=== PATIENT | female | born 1995 | race Caucasian/White ===

== ENCOUNTER 2022-03-29 05:41 | Inpatient (IN) | payer BC, SELFPAY ==
[2022-03-29] VITALS (7 sets, daily range): BP systolic 108–156; BP diastolic 33–87; PULSE 74–88; RESP 18; TEMP 36.6–36.7; O2SAT 98–99; BMI 34.7; BMI 34.8
[2022-03-29 05:05] LABS: Fetal Membrane Rupture (Rapid) Positive (Negative)
[2022-03-29 07:15] LABS: Basophils # 0.1 K/mm3 (0-0.2); Basophils % 0.9 % (0.1-2.0); Eosinophils # 0.2 K/mm3 (0.0-0.4); Eosinophils % 1.6 % (0.1-12.0); Hematocrit 35.4 % (37.0-47.0); Hemoglobin 12.3 g/dL (12.2-16.2); Lymphocytes # 4.1 K/mm3 (0.7-4.5); Lymphocytes % 27.9 % (10-50); Mean Corpuscular HGB Conc 34.6 g/dL (31.8-35.4); Mean Corpuscular Volume 86.7 fl (81-99); Mean Platelet Volume 10.8 fl (7.4-10.4); Monocytes # 0.8 K/mm3 (0.1-1.0); Monocytes % 5.5 % (1.7-9.3); Neutrophils # 9.5 K/mm3 (1.8-7.8); Neutrophils % 64.2 % (37.0-80.0); Platelet Count 281 K/mm3 (142-424); Red Blood Count 4.08 M/mm3 (4.20-5.40); Red Cell Distribution Width 14.5 % (11.5-17.5); White Blood Count 14.8 K/mm3 (4.8-10.8)
[2022-03-29 07:21] LABS: Microscopic, Urine URINE MICROSCOPIC (MICROSCOPIC)
[2022-03-29 07:25] LABS: Appearance,Urine CLEAR (Clear); Bilirubin,Urine Negative (Negative); Blood, Urine 1+ (Negative); Color,Urine YELLOW (Yellow); Glucose,Urine (UA) Negative (Negative); Ketones,Urine Negative (Negative); Leukocyte Esterase,Urine Negative (Negative); Nitrate,Urine Negative (Negative); PH,Urine 7.5 (5.0-8.5); Protein,Urine Negative (Negative); Specific Gravity, Urine 1.015 (1.005-1.030); Urobilinogen,Urine 0.2 EU/dl (0.2)
[2022-03-29 07:31] LABS: Coronavirus 19, PCR Not Detected (NotDetected); Influenza A, PCR Not Detected (NotDetected); Influenza B, PCR Not Detected (NotDetected)
[2022-03-29 07:37] LABS: Bacteria,Urine Trace /lpf; RBC,Urine Occasional #/hpf (0-3); Squamous Epithelial Cell,Urine Occasional #/hpf (0-5); WBC,Urine Occasional #/hpf (0-3)
[2022-03-29 07:40] LABS: Amphetamine/Metha Screen,Urine Negative ng/ml (<1000); Barbiturates Screen,Urine Negative ng/ml (<200); Benzodiazepines Screen,Urine Negative ng/ml (<200); Cannabinoid Screen,Urine Positive ng/ml (<50); Cocaine Screen,Urine Negative ng/ml (<300); Methadone Screen,Urine Negative ng/ml (<300); Opiate Screen,Urine Negative ng/ml (<300); Phencyclidine Screen,Urine Negative ng/ml (<25)
--- NOTE | 2022-03-29 10:55 | PC.NURSE ---
supervisor special effects from [facility] was called to f/u on record request. States she has no record of this patient ever being seen at their hospital or outpatient lab. Order for labs entered at this time.
--- NOTE | 2022-03-29 11:15 | EXP.OB.APHP ---
OB - H&P: HPI Antepartum History of Present Illness Chief complaint: Leakage of fluid History of present illness: Ms Candis Sierra is a 26 yo at 36 weeks who presented to [facility] Labor and Delivery with complaint of leakage of fluid that started at 2200 on 03/28/22. She admits to a green tint to the fluid. She is an unattached patient. She states she has been receiving care with Caren Dawn, machine stemmer, in [place]. She states she the office was [facility]. She reports her due date is April 26. She says she is having a little boy. She had a 01/23/2018. 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 She does not have custody of her daughter. She admits to marijuana and tobacco use during this . Denies any other drug use during this . She denies history of GHTN and GDM with prior . Denies past medical history. History of Present Narrative: Awaiting records from for history of and care Labs Blood type: O (+) positive Rubella: unknown RPR/VDRL: unknown GBS status: unknown HBsAG: unknown [facility] Disclaimer: The information contained in this section may have been updated after the patient was seen, as this information can be updated by other users. Medical History (Updated 03/29/22 @ 11:28 by Mago Rodriguez DO) 36 weeks gestation of History of drug abuse Marijuana use during premature rupture of membranes Tobacco use affecting , antepartum Social History Smoking Status: Current every day smoker alcohol intake: current current occupational status: employed Travel in the last 8 weeks: None Review of Systems Review of Systems Review of systems:: pertinent systems reviewed and negative unless documented below *Genitourinary Comments: + leakage of amniotic fluid Meds Home Medications and Allergies New Prescriptions to Start Prescriptions: Allergies Allergy/AdvReac Type Severity Reaction Status Date / Time No Known Allergies Allergy Verified 03/29/22 04:50 OB - H&P: Exam Physical Exam Vital signs: Temp Pulse Resp BP Pulse Ox 98.0 F 88 18 127/77 98 03/29/22 04:48 03/29/22 04:48 03/29/22 04:48 03/29/22 04:48 03/29/22 04:48 Constitutional no acute distress and cooperative Routine HEENT Exam Head: Present normocephalic and atraumatic Eye: Absent conjunctivae pink ENT: Present mucous membranes moist Routine Neck Exam Present full ROM Routine Respiratory Exam Present CTA bilaterally and normal respiratory effort Routine Cardiovascular Exam Present RRR Routine Abdominal Exam Present soft (Gravid); Absent tenderness Routine Rectal Exam Patient deferred: visual exam Routine Exam External: Present normal urethra appearance; Absent erythema, lesions or lacerations Routine Extremities Exam Present full ROM; Absent edema or calf tenderness Routine Neurological Exam Present alert, oriented X3 and moving all extremities Routine Psychiatric Exam Present normal affect and cooperative Detailed Labor and Delivery Exam Dilation (cm): 2 Effacement (%): 50 Cervix position: posterior station: -3 Consistency: medium Membranes: spontaneously ruptured Amniotic fluid: thin meconium Baseline heart rate: 120 monitor accelerations: Present monitor decelerations: None correction variability: Moderate (11-25) Contraction frequency (min): 5 Tachysystole: No OB - Results Labs Labs: Short CBC 03/29/22 Range/Units 07:04 WBC 14.8 H (4.8-10.8) K/mm3 Hgb 12.3 (12.2-16.2) g/dL Hct 35.4 L (37.0-47.0) % Plt Count 281 (142-424) K/mm3 Urine 03/29/22 Range/Units 05:53 Urine Color Yellow (Yellow) Urine Appearance Clear (Clear) Urine pH 7.5 (5.0-8.5) Ur Specific [place] 1.015 (1.005-1.030) Urine Protein Negative (Negative) Urine Glucose
[2022-03-29 11:28] LABS: Basophils # 0.1 K/mm3 (0-0.2); Basophils % 0.9 % (0.1-2.0); Eosinophils # 0.2 K/mm3 (0.0-0.4); Eosinophils % 1.9 % (0.1-12.0); Hemoglobin 12.1 g/dL (12.2-16.2); Lymphocytes # 3.8 K/mm3 (0.7-4.5); Mean Corpuscular HGB Conc 32.7 g/dL (31.8-35.4); Mean Corpuscular Hemoglobin 29.3 pg (27.0-31.2); Mean Corpuscular Volume 89.5 fl (81-99); Mean Platelet Volume 11.5 fl (7.4-10.4); Monocytes # 0.6 K/mm3 (0.1-1.0); Monocytes % 5.1 % (1.7-9.3); Neutrophils # 7.6 K/mm3 (1.8-7.8); Neutrophils % 61.1 % (37.0-80.0); Platelet Count 268 K/mm3 (142-424); Red Blood Count 4.13 M/mm3 (4.20-5.40); Red Cell Distribution Width 14.6 % (11.5-17.5); White Blood Count 12.3 K/mm3 (4.8-10.8)
--- NOTE | 2022-03-29 14:50 | EXP.ANES.CKL ---
[facility] Disclaimer: The information contained in this section may have been updated after the patient was seen, as this information can be updated by other users. Medical History 36 weeks gestation of History of drug abuse Marijuana use during premature rupture of membranes Tobacco use affecting , antepartum Social History Smoking Status: Current every day smoker alcohol intake: current substance use type: marijuana current occupational status: employed Travel in the last 8 weeks: None [facility] Anesthesia Checklist Patient Identification Patient Identification: Arm Band and Verbal (Name & ) Structural Data Admitted From: Inpatient Planned Operative Procedure/s: Labor epidural Consent for Planned Operative Procedure(s) Verified: Yes NPO Status Verified Time NPO: 06:00 Chart Verification Results Verified: BMP Airway Assessment C-Spine Mobility Assessed: Yes TMJ Mobility Assessed: Yes Dentition: Poor Dentition Neurological Assessment Level of Consciousness: Awake Hx Seizures: No Numbness or tingling in extremities: No Anesthesia Plan Anesthesia Risk discussed: Yes Anesthesia Plan: Verified ASA Class: II Anesthesia Type: Epidural
--- NOTE | 2022-03-29 19:05 | EXP.LABOR.NO ---
Labor Note Subjective: Date: 03/29/22 Time: 19:05 Objective: NST:: Reactive Contractions:: every 2-3 minutes Cervical Dilation:: 4-5 Effacement:: 70% Station: -2 Membranes: spontaneously ruptured (2200 on 03/28/22 with thin meconium) Fetus: Monitoring?: Yes monitoring type:: Internal Assessment: Labor progressing?: No Cephalopelvic disproportion?: Yes All Active Problems (Updated 03/29/22 @ 11:28 by Mago Rodriguez DO) premature rupture of membranes (Acute) 36 weeks gestation of (Acute) Tobacco use affecting , antepartum (Acute) Marijuana use during (Acute) History of drug abuse (Acute) Plan: Plan for ?: Yes Additional information:: Failure to progress. Cervical exam at 1300 was 4/75/-2 per RN. Patient has been unchanged over the past 6 hours. IUPC and FSE in place. Pitocin reached 24 and has been at 24 for the past 1.5 hours. heart tones alternate between minimal and moderate variability with periods with accelerations presents and occasional variable decelerations. There are also periods without accelerations. Discussed failure to progress and suspect cephalopelvic disproportion. Decision was made to proceed with PLTCS secondary to failure to progress. Risks, benefits, alternatives, expectations and possible complications of surgery discussed. All questions addressed and answered. Patient voiced understanding of risks and possible complications. Consent form signed.
--- NOTE | 2022-03-29 20:55 | EXP.OP.NOTE ---
Date of procedure: 03/29/22 Pre-op Diagnosis:: 1. IUP at 36 weeks 2. premature rupture of membranes 3. Subutex maintenance during 4. Tobacco use in 5. Marijuana use in 6. Failure to progress 7. CPD Post-op Diagnosis:: 1. IUP at 36 weeks 2. premature rupture of membranes 3. Subutex maintenance during 4. Tobacco use in 5. Marijuana use in 6. Failure to progress 7. CPD Procedure performed:: Primary Low Transverse Section Surgeon:: Maog Rodriguez DO Movers(s):: Emmanuel Jaramillo MD GENERAL ASSIGNMENT REPORTER:: Anil Edwards Anesthesia: epidural Estimated blood loss (mL): 600 Clinical Note:: Ms Candis Sierra is a 26 yo at 36 weeks who presented to [facility] Labor and Delivery with complaint of leakage of fluid that started at 2200 on 03/28/22. She admits to a green tint to the fluid. She is an unattached patient. She states she has been receiving care with Caren Dawn, shopping inspector, in [place]. She states she the office was Women's Health. She reports her due date is April 26. She says she is having a little boy. She had a 01/23/2018. 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 She does not have custody of her daughter. She is on Subutex maintenance. She admits to marijuana and tobacco use during this . Denies any other drug use during this . She denies history of GHTN and GDM with prior . Admits to history of hemorrhage with last delivery. Cervical exam at 1300 was 4/75/-2 per RN. Cervix unchanged over 6 hours. IUPC and FSE were in place. Pitocin reached 24 and had been at 24 for the past 1.5 hours. heart tones alternated between minimal and moderate variability with periods with accelerations presents and occasional variable decelerations. There were also periods without accelerations. Discussed failure to progress and suspect cephalopelvic disproportion. Decision was made to proceed with PLTCS secondary to failure to progress. Risks, benefits, alternatives, expectations and possible complications of surgery discussed. All questions addressed and answered. Patient voiced understanding of risks and possible complications. Consent form signed. Operative findings:: 1. Live male baby (Baby's name is Aníbal) with APGARs 8, 9 2. Grossly normal appearing uterus, bilateral fallopian tubes and ovaries Operative note:: The risks, benefits and alternatives of the procedure were reviewed with the patient. Informed consent was obtained. Patient was taken to the operating room where epidural was bolused. The patient received 2 grams of Ancef preoperatively. Patient was placed in dorsal supine position with a leftward tilt. SCDs in place. Cope catheter had been placed and was draining clear urine prior to the start of the procedure. heart tones were obtained. Vagina was prepped with Betadine swabs x 3. Patient was then prepped and draped in normal sterile fashion. Allis clamp test was performed to ensure adequate anesthesia. A Pfannenstiel skin incision was made 2 cm above pubic symphysis. This was carried through to underlying layer of fascia. Fascia was incised in midline, extended laterally with Topete scissors. Superior aspect of fascial incision was grasped with two Taya clamps, elevated up, and rectus muscle dissected off bluntly and sharply with Topete scissors. The rectus muscle was then in the midline and the peritoneum was entered bluntly with a digit. Peritoneal incision was then extended superiorly and inferiorly with good visualization of the bladder. Yony retractor was inserted. The lower uterine segment was incised in a transverse fashion. Clear amniotic fluid was noted. Head was delivered without difficulty. Remainder of body was delivered without difficulty. Mouth and nares were bulb suctioned. Spontaneous cry was noted. Delayed cord clamping was performed for 60 seconds. The umbilical cord w
--- NOTE | 2022-03-29 21:15 | P.PNANES_ITS ---
[facility] Anesthesia Record Part I Anesthesia Record I Intake, IV Amount: 1,200 Estimated blood loss (mL): 600 Urine output (mL): 500 Blood Pressure: 108/33 SaO2: 99 Pulse Rate: 74 Respiratory Rate: 18 Temperature: 97.8 F Patient is:: Awake Stable to PACU at:: 21:05
--- NOTE | 2022-03-29 21:48 | SUR.PHASEI ---
2133- detailed report called to sade brown in ob 2135- pt left in stable condition with sade brown in pt room. VSS stable, dressings clean dry and intact. OB nurse confirmed fundus location. Bed rails up and bed in lowest position, family at bedside
[2022-03-30 08:00] VITALS: BP 115/67; PULSE 60
[2022-03-30 08:14] VITALS: RESP 18
[2022-03-30 08:22] LABS: Basophils # 0.1 K/mm3 (0-0.2); Basophils % 0.6 % (0.1-2.0); Monocytes # 0.6 K/mm3 (0.1-1.0); Red Cell Distribution Width 14.5 % (11.5-17.5)
[2022-03-30 08:26] LABS: Eosinophils # 0.1 K/mm3 (0.0-0.4); Eosinophils % 0.9 % (0.1-12.0); Lymphocytes # 3.1 K/mm3 (0.7-4.5); Lymphocytes % 24.6 % (10-50); Mean Corpuscular HGB Conc 33.6 g/dL (31.8-35.4); Mean Corpuscular Hemoglobin 29.5 pg (27.0-31.2); Mean Corpuscular Volume 87.9 fl (81-99); Mean Platelet Volume 10.8 fl (7.4-10.4); Monocytes % 4.6 % (1.7-9.3); Neutrophils # 8.8 K/mm3 (1.8-7.8); Neutrophils % 69.4 % (37.0-80.0); Platelet Count 250 K/mm3 (142-424); Red Blood Count 3.64 M/mm3 (4.20-5.40); White Blood Count 12.7 K/mm3 (4.8-10.8)
[2022-03-30 09:22] LABS: Hemoglobin 10.7 g/dL (12.2-16.2)
[2022-03-30 11:08] LABS: HIV Screen 4th Generation wRfx Non Reactive (Non Reactive); Hepatitis B Surface Antigen Negative (Negative); Rapid Plasma Reagin Ab Titer Non Reactive (NonRea<1:1); Rubella Antibodies, IgG 3.53 index (Immune >0.99)
[2022-03-30 14:42] VITALS: RESP 17
--- NOTE | 2022-03-30 15:32 | PC.NURSE ---
Central Intake notified of pt arrival and positive UDS on patient and infant for THC (buprenorphine pending). Cordstat has been collected. Pt admits she does not have custody of her 4 year old daughter. Report ID #[id number].
--- NOTE | 2022-03-30 16:02 | EXP.ACUTE.PN ---
Subjective *Date: 03/30/22 *Time: 16:02 Interval history: POD # 1 s/p PLTCS Resting in bed. She is formula feeding. She admits to mild pain in her head and neck that improves with lying flat. Abdominal pain controlled with medicaiton. Appropriate lochia. Tolerating regular diet. Voiding without difficulty and passing flatus. No vision changes. Denies fever/chills, chest pain and shortness of breath. Admits to lower extremity swelling. No calf pain. Medical Exam Vital signs and Labs for Last 24 Hours: Vital Signs Temp Pulse Pulse Resp BP BP Pulse Ox 03/30/22 08:00 60 115/67 03/30/22 14:42 17 03/30/22 08:14 18 03/29/22 21:35 97.8 F 81 18 140/86 99 03/29/22 21:25 86 18 131/74 99 03/29/22 21:15 81 18 156/87 H 99 03/29/22 21:05 97.8 F 76 18 108/33 L 99 03/29/22 21:22 18 03/29/22 21:17 97.8 F 74 18 108/33 L Laboratory Results - last 24 hr 03/29/22 11:12: RPR Titer Non reactive, Hep Bs Antigen Negative, HIV 1&2 Ag/Ab, 4th Gen Non reactive, Rubella IgG Antibody 3.53 03/29/22 20:05: Cord ABG pH 7.40 03/30/22 08:10: WBC 12.7 H, RBC 3.64 L, Hgb 10.7 L D, Hct 32.0 L, MCV 87.9, MCH 29.5, MCHC 33.6, RDW 14.5, Plt Count 250, MPV 10.8 H, Neut % (Auto) 69.4, Lymph % (Auto) 24.6, [place] % (Auto) 4.6, Eos % (Auto) 0.9, Baso % (Auto) 0.6, Neut # (Auto) 8.8 H, Lymph # (Auto) 3.1, [place] # (Auto) 0.6, Eos # (Auto) 0.1, Baso # (Auto) 0.1 I & O for Labs for Last 24 Hours: Intake & Output 02/09/23 02/10/23 02/11/23 02/12/23 23:59 23:59 23:59 23:59 Intake Total 1200 / 1200 Balance 1200 / 1200 Weight 216 lb 0.002 oz Head: Present atraumatic and normocephalic ENT: Present mucous membranes moist Neck: Present normal inspection and full ROM Respiratory: Present CTA bilaterally and normal respiratory effort Cardiac: Present Reg Rate and Rhythm GI: Present soft and normal bowel sounds; Absent distention or tenderness Comments:: Uterine fundus firm and below umbilicus. Pfannenstiel incision clean/dry/intact with steri strips in place Rectal (female): Present deferred (female): Present deferred Extremities: Present full ROM and edema (+1 bilateral lower extremity edema); Absent calf tenderness Assessment and Plan *Assessment and plan (1) 36 weeks gestation of : Status: Acute Category: Medical Code(s): Z3A.36 - 36 weeks gestation of (2) premature rupture of membranes: Status: Acute Category: Medical Code(s): O42.919 - premature rupture of membranes, unspecified as to length of time between rupture and onset of labor, unspecified trimester (3) S/P : Status: Acute Category: Surgical Code(s): Z98.891 - History of uterine scar from previous surgery (4) complicated by subutex maintenance, antepartum: Status: Acute Category: Medical Code(s): O99.320 - Drug use complicating , unspecified trimester; F11.20 - Opioid dependence, uncomplicated (5) Tobacco use affecting , antepartum: Status: Acute Category: Medical Code(s): O99.330 - Smoking (tobacco) complicating , unspecified trimester (6) Marijuana use during : Status: Acute Category: Medical Code(s): O99.320 - Drug use complicating , unspecified trimester; F12.90 - Cannabis use, unspecified, uncomplicated (7) Failure to progress in labor: Status: Acute Category: Medical Code(s): O62.2 - Other uterine inertia (8) Acute blood loss anemia: Status: Acute Category: Medical Code(s): D62 - Acute posthemorrhagic anemia Plan Continue routine care Encouraged increased ambulation Plan d/c on POD #2. Plan on her staying as a guest until baby is discharged
[2022-03-31 07:28] VITALS: BP 116/80; PULSE 71; RESP 17; TEMP 37.1; O2SAT 99
--- NOTE | 2022-03-31 08:59 | EXP.DC.SUM ---
General Admission date:: 03/29/22 Discharge date: 03/31/22 HPI HPI HPI: POD # 2 s/p PLTCS secondary to failure to progress She is feeling okay. Abdominal pain is controlled with medication. She admits to neck pain that causes head pressure. Yesterday she said she had a headache with neck pain. She states today laying flat and caffeine do not help. But she has been up and active. Flexeril helped the pain. She is formula feeding. Light lochia. Tolerating regular diet. Voiding without difficulty and passing flatus. She has had a BM. Denies vision changes, RUQ/epigastric pain and swelling. Hospital Course Hospital Course Hospital Course: Ms Candis Sierra is a 26 yo at 36 weeks who presented to [facility] Labor and Delivery with complaint of leakage of fluid that started at 2200 on 03/28/22. She reported green tint to the fluid. She is an unattached patient. She states she has been receiving care with Caren Dawn, nurse midwife, in [place]. She states the office was Women's Health. She reports her due date is April 26. She had a 01/23/2018. 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 She does not have custody of her daughter. She is on Subutex maintenance. Pitocin was started for labor augmentation. Cervical exam at 1300 was 4/75/-2 per RN. Cervix unchanged over 6 hours. IUPC and FSE were in place. Pitocin reached 24 and had been at 24 for the past 1.5 hours. heart tones alternated between minimal and moderate variability with periods with accelerations presents and occasional variable decelerations. There were also periods without accelerations. Discussed failure to progress and suspect cephalopelvic disproportion. Decision was made to proceed with PLTCS secondary to failure to progress. She underwent primary on 03/29/22. She delivered a live male baby (baby's name is Aníbal) weighing 6 lb 8 oz. APGARs 8, 9. EBL 600 mL. She did well postoperatively. Pain controlled with medication. She complained of neck pain/head pressure that seemed musculoskeletal in origin and responded to Flexeril and ice. She is bottle feeding. Light lochia. Tolerating regular diet. Voiding without difficulty and passing flatus. She had a BM. Vital signs stable, afebrile. Heart was regular rate and rhythm. Lungs clear to auscultation. Abdomen soft, nontender. No lower extremity edema and no calf tenderness. Discharged on POD # 2 with guesting. Recommended progressive care unit registered nurse for neck pain if pain continues. 03/29/22: Hgb 12.1, Hct 37.0 03/30/22: Hgb 10.7, Hct 32.0 Exam Data for Last 24 hours Vital signs and Labs for Last 24 Hours: Temp Pulse Resp BP Pulse Ox 98.7 F 71 17 116/80 99 03/31/22 07:28 03/31/22 07:28 03/31/22 07:28 03/31/22 07:28 03/31/22 07:28 Laboratory Results - last 24 hr 03/29/22 11:12: RPR Titer Non reactive, Hep Bs Antigen Negative, HIV 1&2 Ag/Ab, 4th Gen Non reactive, Rubella IgG Antibody 3.53 03/30/22 08:10: Hgb 10.7 L D I & O for Last 24 hours: Intake & Output 03/28/22 03/29/22 03/30/22 03/31/22 23:59 23:59 23:59 23:59 Intake Total 1200 / 1200 Balance 1200 / 1200 Weight 216 lb 0.002 oz Constitutional Constitutional: no acute distress and cooperative *Routine HEENT Exam Head: Present normocephalic and atraumatic Eye: Absent conjunctivae pink ENT: Present mucous membranes moist *Routine Neck Exam Neck: Present full ROM *Routine Respiratory Exam Respiratory: Present CTA bilaterally and normal respiratory effort *Routine Cardiovascular Exam Cardiovascular: Present RRR *Routine Abdominal Exam Abdominal: Present soft and normoactive bowel sounds; Absent tenderness or distended Comments: Uterine fundus firm and below umbilicus. Pfannenstiel incision clean/dry/intact with steri strips in place *Routine Rectal Exam Patient deferred: visual exam *Routine Exam Patient deferred: external exam *Routine Extremities Exam Extremities: Present full ROM; Absent edema or c
[2022-03-31 09:29] VITALS: BP 140/86; PULSE 81; TEMP 36.6
--- NOTE | 2022-03-31 09:29 | EXP.ANES.II ---
[facility] Anesthesia Record Part II Anesthesia Record Part II Discharge Time: 21:35 Destination: Obstetric PACU nurse assessment reviewed?: Yes Patient Condition:: Good Anesthesia Complications:: None Swallowing reflex intact?: Yes Cyanosis?: No Blood Pressure: 140/86 Pulse Rate: 81 Temperature: 97.8 F Mental Status: Alert & Oriented Pain level:: 0 Nausea and/or vomitting:: None Intake, IV Amount: 0
--- NOTE | 2022-03-31 15:59 | CARE MANAGER ---
Addendum entered by Chanel Cain RN 04/02/22 13:38: I called and spoke with Jose Tsai, who stated that he is waiting to here from [facility] to verify patient's compliance with clinic. He plans to be here in the morning with discharge plan. CM will continue to monitor. Addendum entered by Chanel Cain RN 04/01/22 15:00: Called and left message and emailed Yesenia Ortez this morning, due to we still had not heard from her. Yesenia emailed this afternoon to let me know that she will not be handling the case and she has notified Jose Tsai in [facility], who is now the SW on this case. Jose Tsai has emailed that he will be at our facility today @ 1600. OB staff notified. Original Note: Followed up with patient today regarding positive THC for mother and baby, as well as CPS referral. CPS has picked up the case and SW assigned is Yesenia Ortez, out of [facility] office. Patient stated that she lives with her baby's daddy and his parents and younger brother and she works @ [employer] a lot. Patient also stated that she has a 4 year old daughter, who her grandmother has custody of and she is not allowed to see that child. Patient apparently is involved with [facility] in [place], and has been on Subutex the entire . I have attempted to call Yesenia and she has not returned my call. Mother discharged today, but baby remains admitted at this time. I will continue to follow.
[2022-04-06 19:08] LABS: Buprenorphine, Urine Positive (Cutoff=10)
== END 2022-03-31 11:41 | disposition home or self-care (01) | DRG 787 ==
LOC: OBOUT 05:42 → OB 05:42
PROVIDERS: Admitting Provider Obstetrics & Gynecology; PCP Nurse Practitioner Family; Referring Provider Obstetrics & Gynecology; Visit Provider Obstetrics & Gynecology
PROC: 10D00Z1 Extraction of Products of Conception, Low, Open Approach (ICD-10-PCS; CPT 59514; principal; 2022-03-29 19:00)
DX: O42.013 Preterm premature rupture of membranes, onset of labor within 24 hours of rupture, third trimester (principal); O99.324 Drug use complicating childbirth; Z3A.36 36 weeks gestation of pregnancy; O99.334 Smoking (tobacco) complicating childbirth; F17.210 Nicotine dependence, cigarettes, uncomplicated; Z79.891 Long term (current) use of opiate analgesic; F12.20 Cannabis dependence, uncomplicated; Z37.0 Single live birth; O33.8 Maternal care for disproportion of other origin
CPT/HCPCS: 59514; 36415; 59025; 80305; 80307; 81001; 82800; 84112; 85025; 86593; 86762; 86850; 87340; 88307; 94761; C1758; C9290; C9803; G0283; J0131; J0290; J0571; U0003; U0005